=== PATIENT | male | born 1955 | race Hispanic/Latino ===

== ENCOUNTER 2018-09-05 05:35 | Day surgery (SDC) | payer MEDICARE ==
[~2018-09-05] VITALS: Ht 165.1 cm; Wt 85.2 kg
[~2018-09-05 05:35] MED LIST: SODIUM CHLORIDE 0.9% 1000ML 1,000 ML IV ONE
[2018-09-05 05:47] VITALS: BP 143/83
[2018-09-05 06:23] LABS: INR 1.43 (0.85-1.15); PROTHROMBIN TIME 14.9 SEC (9.6-11.6)
[2018-09-05] MEDS ORDERED: PROPOFOL 10 MG/ML 20ML VIAL IV ONE ×3 (06:36→06:58)
[2018-09-05] MEDS ORDERED: WARF2.5T85 PO ×2 (06:47)
[2018-09-05] MEDS ORDERED: CHLORPHENIRAMINE PO (06:47)
[2018-09-05] MEDS ORDERED: VITAMIN B12 PO (06:47)
[2018-09-05] MEDS ORDERED: MUCUS RELIEF PO (06:47)
[2018-09-05] MEDS ORDERED: VITAMIN D3 PO (06:47)
[2018-09-05] MEDS ORDERED: RAMI2.5C16 PO (06:47)
[2018-09-05] MEDS ORDERED: COQ10 PO (06:47)
[2018-09-05] MEDS ORDERED: ATOR20TA65 PO (06:47)
[2018-09-05] MEDS ORDERED: ASCO10007 PO (06:47)
[2018-09-05] MEDS ORDERED: CARV6.25 PO (06:47)
[2018-09-05] MEDS ORDERED: FISH OIL PO (06:47)
[2018-09-05] MEDS ORDERED: MULTIVITAMIN PO (06:47)
[2018-09-05 07:09] VITALS: BP 93/55
[2018-09-05 07:16] VITALS: BP 111/83
[2018-09-05 07:21] VITALS: BP 121/81
== END 2018-09-05 07:35 | disposition home or self-care (01) ==
LOC: DAH 05:35
PROVIDERS: ATTEND Internal Medicine
DX: D12.2 Benign neoplasm of ascending colon (principal); D12.0 Benign neoplasm of cecum; D12.3 Benign neoplasm of transverse colon; D12.4 Benign neoplasm of descending colon; D12.5 Benign neoplasm of sigmoid colon; K57.30 Diverticulosis of large intestine without perforation or abscess without bleeding; K64.8 Other hemorrhoids; Z79.899 Other long term (current) drug therapy; E78.00 Pure hypercholesterolemia, unspecified; Z86.73 Personal history of transient ischemic attack (TIA), and cerebral infarction without residual deficits; I10 Essential (primary) hypertension; I25.5 Ischemic cardiomyopathy; Z80.42 Family history of malignant neoplasm of prostate; Z80.8 Family history of malignant neoplasm of other organs or systems; Z82.49 Family history of ischemic heart disease and other diseases of the circulatory system; Z83.3 Family history of diabetes mellitus; Z82.3 Family history of stroke; Z72.89 Other problems related to lifestyle; Z87.891 Personal history of nicotine dependence; Z86.010 Personal history of colon polyps; H54.8 Legal blindness, as defined in USA; Z90.49 Acquired absence of other specified parts of digestive tract
CPT/HCPCS: 36415; 45385; 85610; 88305; 93005; A4606; A4649; J2704 ×3; J7030; 45380; 45382; 45384

== ENCOUNTER 2020-03-10 16:17 | Inpatient (IN) | payer OTHER, MEDICARE ==
[~2020-03-10] VITALS: Ht 162.6 cm; Wt 80.3 kg
[~2020-03-10 16:17] MED LIST changes: +ASCO100031 PO; +ATOR20TA65 PO; +CARV6.25 PO; +CHLORPHENIRAMINE PO; +COQ10 PO; +FISH OIL PO; +MUCUS RELIEF PO; +MULTIVITAMIN PO; +RAMI2.5C16 PO; -SODIUM CHLORIDE 0.9% 1000ML 1,000 ML IV ONE; +VITAMIN B12 PO; +VITAMIN D3 PO; +WARF2.5T85 PO
[2020-03-10 17:07] LABS: BASOPHILS % (AUTO) 1.3 % (0.0-5.0); EOSINOPHILS % (AUTO) 0.2 % (0.0-8.0); HEMATOCRIT 39.6 % (42-54); LYMPHOCYTES % (AUTO) 7.3 % (21.0-51.0); MEAN CORPUSCULAR HEMOGLOBIN 29.5 pg (27.0-33.0); MEAN CORPUSCULAR HGB CONC 35.9 g/dL (32.0-36.0); MEAN CORPUSCULAR VOLUME 82.2 fL (79-99); MONOCYTES % (AUTO) 5.1 % (3.0-13.0); NEUTROPHILS % (AUTO) 85.4 % (40.0-77.0); PLATELET COUNT (AUTO) 218 K/uL (130-400); RED BLOOD CELL COUNT(AUTO) 4.82 MIL/uL (4.50-6.20); WHITE BLOOD COUNT (AUTO) 10.9 K/uL (4.8-10.8)
[2020-03-10 17:17] LABS: INR 1.14 (0.85-1.15); PARTIAL THROMBOPLASTIN TIME 32.1 SEC (26.3-35.5); PROTHROMBIN TIME 12.2 SEC (9.6-11.6)
[2020-03-10 17:19] LABS: CARBON DIOXIDE 20 mmol/L (21-32); CHLORIDE 96 mmol/L (101-111); CREATININE 1.5 mg/dL (0.5-1.5); GLOMERULAR FILTR. RATE CALC 50 mL/min (>60); GLUCOSE,RANDOM 132 mg/dL (70-105); POTASSIUM 3.4 mmol/L (3.5-5.1); SODIUM SERUM 129 mmol/L (136-145); UREA NITROGEN, BLOOD 42 mg/dL (7-18)
[2020-03-10 17:41] LABS: ALANINE AMINOTRANSFERASE 43 U/L (12-78); ALBUMIN 3.1 g/dL (3.5-5.0); ASPARTATE AMINOTRANSFERASE 65 U/L (10-37); BILIRUBIN,TOTAL 1.3 mg/dL (0.2-1.0); MYOGLOBIN 836 ng/mL (10-92); TOTAL PROTEIN, SERUM 8.3 g/dL (6.0-8.3); TROPONIN I < 0.04 ng/mL (0.00-0.06)
[2020-03-10 17:44] LABS: CREATINE KINASE, TOTAL 603 U/L (21-232)
[2020-03-10] MEDS ORDERED: CEFTRIAXONE SODIUM 1 GM ONE (19:51)
[2020-03-10] MEDS ORDERED: AZITHROMYCIN 500MG+NS 250ML 250 ML IV ONE (19:51)
[2020-03-10] MEDS ORDERED: AZITHROMYCIN 250 MG TABLET PO ONE (19:55)
[2020-03-10] MEDS: CEFTRIAXONE SODIUM 1 GM IVP SCH (20:00)
[2020-03-10] MEDS ORDERED: AZITHROMYCIN 500MG+NS 250ML 250 ML IV SCH (20:00)
[2020-03-10] MEDS ORDERED: FAMOTIDINE 20MG TAB 20 MG TAB ONE (20:50)
[2020-03-10] MEDS: HYDROXYCHLOROQUINE SULFATE 200 MG TAB PO SCH (21:00)
[2020-03-10] MEDS: FAMOTIDINE 20MG TAB 20 MG TAB PO SCH (21:00)
[2020-03-10 23:02] VITALS: BP 118/77
[2020-03-10] MEDS ORDERED: POTASSIUM CHLORIDE 10% ELIXIR 20 MEQ/15 ML UDCUP PO SCH (23:45)
[2020-03-10] MEDS ORDERED: MONT10TA26 PO (23:51)
[2020-03-10] MEDS ORDERED: ATOR40TA71 PO (23:51)
[2020-03-10] MEDS ORDERED: LORA10TA7 PO (23:51)
[2020-03-10] MEDS ORDERED: RIVA20TA PO (23:51)
[2020-03-11 04:10] VITALS: BP 131/90
[2020-03-11 07:00] VITALS: BP 115/66
[2020-03-11] MEDS ORDERED: POTASSIUM CHLORIDE 20 MEQ ERTAB PO PRN (07:45)
[2020-03-11] MEDS ORDERED: POTASSIUM CHLORIDE 20MEQ/100ML 100 ML IV PRN (07:45)
[2020-03-11] MEDS ORDERED: LIDOCAINE HCL-MPF 1% 2ML VIAL IV PRN (07:45)
[2020-03-11] MEDS ORDERED: POTASSIUM CHLORIDE 10% ELIXIR 20 MEQ/15 ML UDCUP PO PRN (07:45)
--- NOTE | 2020-03-11 07:45 | NUR ---
AM ASSESSMENT PT LAYING IN BED, HOB ELEVATED 30 DEGREES, WATCHING TV. A/O X 3. SOB ON EXERTION. NO DISTRESS NOTED. O2 NC @ 2L. DENIES CHEST PAIN OR DISCOMFORT. DENIES PALPITATIONS. TELE: SR. DENIES N/V. (+) DIARRHEA. BEDSIDE COMMODE. PT INFORMED UA PENDING. UP W/ASSISTANCE. INSTRUCTED TO CALL FOR ASSISTANCE. CALL LJ W/IN REACH.
[2020-03-11] MEDS: HYDROXYCHLOROQUINE SULFATE 200 MG TAB PO SCH (07:54)
[2020-03-11] MEDS: FAMOTIDINE 20MG TAB 20 MG TAB PO SCH ×2 (07:54→20:03)
--- NOTE | 2020-03-11 11:08 | NUR ---
CHART REVIEWED, ACF UPLOADED
[2020-03-11 11:30] VITALS: BP 103/67
[2020-03-11 12:08] LABS: CREATININE 1.2 mg/dL (0.5-1.5); POTASSIUM 3.9 mmol/L (3.5-5.1)
[2020-03-11 12:16] LABS: APPEARANCE,URINE Clear (CLEAR); BILIRUBIN,URINE Negative (NEGATIVE); COLOR,URINE Dark Yellow (YELLOW); GLUCOSE, URINE (UA) Negative (NEGATIVE); KETONES,URINE Negative (NEGATIVE); LEUKOCYTE ESTERASE ,URINE Negative (NEGATIVE); NITRATE,URINE Negative (NEGATIVE); OCCULT BLOOD,URINE Trace (NEGATIVE); PH,URINE 5.5 (5.0-8.0); PROTEIN,URINE POS 2+ mg/dL (NEGATIVE)
[2020-03-11 12:32] LABS: BACTERIA,URINE Rare /HPF (None Seen); RBC,URINE 0-1 /HPF (0-1); SQUAMOUS EPITHELIAL CELL,UR Rare /HPF (0-2)
[2020-03-11 15:20] VITALS: BP 141/71
[2020-03-11] MEDS: SODIUM CHLORIDE 0.9% 1000ML 1,000 ML IV SCH (15:35)
--- NOTE | 2020-03-11 16:32 | NUR ---
INITIAL- SPOKE TO RADHA VINCENT VIA PHONE ONLY NUMBER ON FACE SHEET IS RADHA- STATES PATIENT LIVES ALONE, LEGALLY BLIND IN ONE [place], NO CAR, DOES NOT DRIVE, RADHA DOES ALL THE SHOPPING AND TRANSPORT- ONE OTHER SISTER IN THE AREA, WITH + NEICIE AND NEPHEWS, LOTS OF SUPPORT. NO PROVIDERS OR HOME HEALTH, MEALS ON WHEELS, PATIENT HAS NO HH, NO DME, HAS A HANDICAPPED RESTROOM. HOME SAFE AND ACCESSIBLE, DCP IS HOME . Addendum: 03/11/20 at 1634 by ROMI WELLS RN CM Amended: Links added.
[2020-03-11 17:00] LABS: LACTATE DEHYDROGENASE 312 U/L (81-234)
--- NOTE | 2020-03-11 17:55 | NUR ---
NOTIFICATION Hari LUZ NP NOTIFIED OF D-DIMAER, FERRITIN, & C REACT PROTEIN RESULTS. NO ORDERS RECEIVED @ THIS TIME.
[2020-03-11 19:23] VITALS: BP 120/66
[2020-03-11] MEDS: CEFTRIAXONE SODIUM 1 GM IVP SCH (20:02)
[2020-03-11] MEDS: ATORVASTATIN CALCIUM 40 MG TABLET PO SCH (20:02)
[2020-03-11] MEDS: AZITHROMYCIN 500MG+NS 250ML 250 ML IV SCH (20:02)
[2020-03-11] MEDS: CARVEDILOL 6.25 MG TABLET PO SCH (20:03)
[2020-03-11] MEDS: MONTELUKAST SODIUM 10 MG TAB PO SCH (20:03)
[2020-03-11] MEDS ORDERED: HYDROXYCHLOROQUINE SULFATE 200 MG TAB PO SCH (21:00)
[2020-03-11 23:09] VITALS: BP 102/63
[2020-03-11] MEDS: ACETAMINOPHEN 325 MG TAB PO PRN (23:22)
[2020-03-12 03:34] VITALS: BP 84/61
[2020-03-12] MEDS: SODIUM CHLORIDE 0.9% 1000ML 1,000 ML IV SCH ×2 (04:20→16:54)
[2020-03-12 05:52] LABS: BASOPHILS % (AUTO) 0.2 % (0.0-5.0); EOSINOPHILS % (AUTO) 0.1 % (0.0-8.0); HEMATOCRIT 34.4 % (42-54); LYMPHOCYTES % (AUTO) 10.8 % (21.0-51.0); MEAN CORPUSCULAR HEMOGLOBIN 28.7 pg (27.0-33.0); MEAN CORPUSCULAR HGB CONC 34.3 g/dL (32.0-36.0); MEAN CORPUSCULAR VOLUME 83.7 fL (79-99); MONOCYTES % (AUTO) 4.1 % (3.0-13.0); PLATELET COUNT (AUTO) 232 K/uL (130-400); RED BLOOD CELL COUNT(AUTO) 4.11 MIL/uL (4.50-6.20); RED CELL DISTRIBUTION WIDTH 13.3 % (11.0-15.5); WHITE BLOOD COUNT (AUTO) 10.8 K/uL (4.8-10.8)
[2020-03-12 06:27] LABS: CREATININE 1.1 mg/dL (0.5-1.5); MAGNESIUM 2.7 mg/dL (1.80-2.40); PHOSPHORUS 3.4 mg/dL (2.5-4.9); POTASSIUM 3.5 mmol/L (3.5-5.1)
--- NOTE | 2020-03-12 07:10 | NUR ---
ASSESSMENT PT AAOX3 DENIES CP DENIES SOB DENIES NV WHILE AT REST. NO COMPLAINTS AT THIS TIME. CALL LIGHT WITHIN REACH. AM XRAY TAKEN AT BEDSIDE.
[2020-03-12] MEDS: RIVAROXABAN 20 MG TABLET PO SCH (07:37)
[2020-03-12] MEDS: FAMOTIDINE 20MG TAB 20 MG TAB PO SCH ×2 (07:37→20:22)
[2020-03-12] MEDS: CARVEDILOL 6.25 MG TABLET PO SCH ×2 (07:38→20:24)
[2020-03-12] MEDS: LISINOPRIL 10 MG TABLET PO SCH (07:38)
[2020-03-12] MEDS: LORATADINE 10 MG TABLET PO SCH (07:39)
[2020-03-12 07:48] LABS: MYOGLOBIN 209 ng/mL (10-92)
[2020-03-12 07:55] LABS: CREATINE KINASE, TOTAL 464 U/L (21-232)
[2020-03-12 09:04] VITALS: BP 94/58
[2020-03-12 12:16] VITALS: BP 102/67
[2020-03-12 16:19] VITALS: BP 102/65
--- NOTE | 2020-03-12 18:00 | NUR ---
STATUS NO COMPLAINTS AT THE MOMENT. RESTING IN BED.
[2020-03-12 20:02] VITALS: BP 101/72
[2020-03-12] MEDS: AZITHROMYCIN 500MG+NS 250ML 250 ML IV SCH (20:23)
[2020-03-12] MEDS: MONTELUKAST SODIUM 10 MG TAB PO SCH (20:23)
[2020-03-12] MEDS: CEFTRIAXONE SODIUM 1 GM IVP SCH (20:23)
[2020-03-12] MEDS: ATORVASTATIN CALCIUM 40 MG TABLET PO SCH (20:23)
[2020-03-13] VITALS (7 sets, daily range): BP systolic 106–123; BP diastolic 66–82
[2020-03-13 05:10] LABS: BASOPHILS % (AUTO) 0.1 % (0.0-5.0); EOSINOPHILS % (AUTO) 0.3 % (0.0-8.0); HEMATOCRIT 32.3 % (42-54); LYMPHOCYTES % (AUTO) 15.8 % (21.0-51.0); MEAN CORPUSCULAR HEMOGLOBIN 29.3 pg (27.0-33.0); MEAN CORPUSCULAR HGB CONC 34.7 g/dL (32.0-36.0); MEAN CORPUSCULAR VOLUME 84.6 fL (79-99); MONOCYTES % (AUTO) 6.4 % (3.0-13.0); NEUTROPHILS % (AUTO) 76.1 % (40.0-77.0); PLATELET COUNT (AUTO) 261 K/uL (130-400); RED BLOOD CELL COUNT(AUTO) 3.82 MIL/uL (4.50-6.20); RED CELL DISTRIBUTION WIDTH 13.5 % (11.0-15.5)
[2020-03-13 05:26] LABS: CREATININE 0.9 mg/dL (0.5-1.5); POTASSIUM 3.6 mmol/L (3.5-5.1)
[2020-03-13] MEDS: RIVAROXABAN 20 MG TABLET PO SCH (07:18)
[2020-03-13] MEDS: SODIUM CHLORIDE 0.9% 1000ML 1,000 ML IV SCH ×2 (07:19→21:03)
[2020-03-13] MEDS: CARVEDILOL 6.25 MG TABLET PO SCH ×2 (07:19→22:33)
[2020-03-13] MEDS: FAMOTIDINE 20MG TAB 20 MG TAB PO SCH ×2 (07:19→20:50)
[2020-03-13] MEDS: LORATADINE 10 MG TABLET PO SCH (07:19)
[2020-03-13] MEDS: LISINOPRIL 10 MG TABLET PO SCH (07:20)
--- NOTE | 2020-03-13 08:00 | NUR ---
ASSESSMENT PT AAOX3 DENIES CP DENIES SOB DENIES NV WHILE AT REST. NO COMPLAINTS AT THIS TIME. CALL LIGHT WITHIN REACH.
[2020-03-13] MEDS: AZITHROMYCIN 500MG+NS 250ML 250 ML IV SCH (20:50)
[2020-03-13] MEDS: CEFTRIAXONE SODIUM 1 GM IVP SCH (20:50)
[2020-03-13] MEDS: ATORVASTATIN CALCIUM 40 MG TABLET PO SCH (20:51)
[2020-03-13] MEDS: MONTELUKAST SODIUM 10 MG TAB PO SCH (20:51)
[2020-03-14 06:00] VITALS: BP 118/83
[2020-03-14] MEDS: RIVAROXABAN 20 MG TABLET PO SCH (08:05)
[2020-03-14] MEDS: LORATADINE 10 MG TABLET PO SCH (08:05)
[2020-03-14] MEDS: FAMOTIDINE 20MG TAB 20 MG TAB PO SCH ×2 (08:05→20:32)
[2020-03-14] MEDS: LISINOPRIL 10 MG TABLET PO SCH (08:05)
[2020-03-14] MEDS: CARVEDILOL 6.25 MG TABLET PO SCH ×2 (08:06→20:32)
[2020-03-14 08:58] VITALS: BP 138/91
[2020-03-14 12:02] VITALS: BP 124/75
--- NOTE | 2020-03-14 14:29 | NUR ---
CALL TO SISTER X 2 THIS MORNING REC'D CALL FROM THAT SISTER RADHA HAD LEFT MESSAGE . CALL X 2 TO RADHA, MESSAGE LEFT, NO ANSWER YET. PRIMARY RN STATES SISTER CALLED EARLIER TODAY WAS CONCERNED RE THE SANITARY CONDITION OF PTS HOME. WILL ATTEMPT TO FOLLOW UP. Addendum: 03/14/20 at 1432 by ROMI WELLS RN CM Amended: Links added.
--- NOTE | 2020-03-14 15:49 | NUR ---
SISTER INPUT RE OXYGEN ORDER RECD FOR HOME O2- SPOKE TO [employer] DC TOMORROW, GET EVAL AND QUALIFICATIONS TODAY. SPOKE TO RT. PT WILL QUALIFY, DE-SATS SITTING ON ROOM AIR. CALL FROM RADHA SISTER- CAREGIVER- STATES IMPAIRED VISION, FORGETFUL, NOON COMPLIANT W MEDS, UNSTADY ON FEET POOR EXCERSIZE TOLERANCE- WORRIED PATIENT WILLNOT SAFELY ADMIN OXYGEN- WILL FORGET TO WEAR IT OR WILL TRIP ON TUBING. ASKING RE PLACMENT- ADVISED HER IF PATIENT AGREES, CAN MEET CRITERIA FOR COVID AFTERCARE. TEXT TO BALJIT [facility] DC TUESDAY TO HOME IF DOES NOT NEED O2 VS TO SNF IF DOES NEED O2. Addendum: 03/14/20 at 1554 by ROMI WELLS RN Amended: Links added.
[2020-03-14 16:31] VITALS: BP 135/75
[2020-03-14 19:00] VITALS: BP 119/78
[2020-03-14] MEDS: AZITHROMYCIN 250 MG TABLET PO SCH (20:32)
[2020-03-14] MEDS: MONTELUKAST SODIUM 10 MG TAB PO SCH (20:32)
[2020-03-14] MEDS: CEFTRIAXONE SODIUM 1 GM IVP SCH (20:32)
[2020-03-14] MEDS: ATORVASTATIN CALCIUM 40 MG TABLET PO SCH (20:32)
[2020-03-14 23:00] VITALS: BP 126/83
[2020-03-15] VITALS (15 sets, daily range): BP systolic 103–127; BP diastolic 68–85
[2020-03-15] MEDS: LORATADINE 10 MG TABLET PO SCH (08:00)
[2020-03-15] MEDS: RIVAROXABAN 20 MG TABLET PO SCH (08:00)
[2020-03-15] MEDS: FAMOTIDINE 20MG TAB 20 MG TAB PO SCH ×2 (08:00→19:42)
[2020-03-15] MEDS: LISINOPRIL 10 MG TABLET PO SCH (08:01)
[2020-03-15] MEDS: CARVEDILOL 6.25 MG TABLET PO SCH ×2 (08:02→19:43)
[2020-03-15] MEDS ORDERED: METHYLPREDNISOLONE SOD SUCC 40MG/ML 1ML IVP SCH (13:30)
[2020-03-15 13:44] LABS: ABG BASE EXCESS -0.9 mmol/L (-2.0-3.0); ABG HCO3 21.6 mmol/L (21.0-28.0); ABG OXYGEN SATURATION 96.1 % (95.0-99.0); ABG PCO2 30 mmHg (35-48)
--- NOTE | 2020-03-15 13:50 | NUR ---
ABG ABG RESULTS GIVEN TO DR VIDES; NO ORDERS AT THIS TIME
[2020-03-15 14:10] LABS: BASOPHILS % (AUTO) 0.7 % (0.0-5.0); EOSINOPHILS % (AUTO) 1.9 % (0.0-8.0); HEMATOCRIT 33.1 % (42-54); LYMPHOCYTES % (AUTO) 12.1 % (21.0-51.0); MEAN CORPUSCULAR HEMOGLOBIN 29.4 pg (27.0-33.0); MONOCYTES % (AUTO) 8.7 % (3.0-13.0); NEUTROPHILS % (AUTO) 74.3 % (40.0-77.0); NUCLEATED RED BLOOD CELLS 0.3 % (0.0-0.19); PLATELET COUNT (AUTO) 336 K/uL (130-400); RED BLOOD CELL COUNT(AUTO) 3.94 MIL/uL (4.50-6.20); RED CELL DISTRIBUTION WIDTH 13.3 % (11.0-15.5); WHITE BLOOD COUNT (AUTO) 7.3 K/uL (4.8-10.8)
[2020-03-15 14:20] LABS: CREATININE 0.8 mg/dL (0.5-1.5); POTASSIUM 3.6 mmol/L (3.5-5.1)
[2020-03-15 14:25] LABS: ALBUMIN 2.1 g/dL (3.5-5.0); BILIRUBIN,TOTAL 0.6 mg/dL (0.2-1.0); CRP QUANTITATIVE 150.9 mg/L (0.00-9.0)
--- NOTE | 2020-03-15 19:30 | NUR ---
ASSESSMENT PT AAOX4, PLEASANT, COOPERATIVE, RESTING QUIETLY AND COMFORTABLY IN BED. CALLBELL REVIEWED AND WITHIN REACH. BEDSIDE MONITOR PARAMETERS REVIEWED AND ADJUSTED. PT CURRENT DENIES ANY CHEST PAIN, GENERALIZED PAIN OR DISCOMFORT, RESTLESSNESS. S.O.B. WITH EXERTION NOTED. ASSESSMENT COMPLETED, SEE FLOW SHEET.
[2020-03-15] MEDS: CEFTRIAXONE SODIUM 1 GM IVP SCH (19:41)
[2020-03-15] MEDS: ATORVASTATIN CALCIUM 40 MG TABLET PO SCH (19:42)
[2020-03-15] MEDS: AZITHROMYCIN 250 MG TABLET PO SCH (19:42)
[2020-03-15] MEDS: MONTELUKAST SODIUM 10 MG TAB PO SCH (19:42)
[2020-03-16] VITALS (28 sets, daily range): BP systolic 92–127; BP diastolic 59–90
[2020-03-16] MEDS: RIVAROXABAN 20 MG TABLET PO SCH (07:58)
[2020-03-16] MEDS: LORATADINE 10 MG TABLET PO SCH (07:58)
[2020-03-16] MEDS: FAMOTIDINE 20MG TAB 20 MG TAB PO SCH ×2 (07:59→20:06)
[2020-03-16] MEDS: METHYLPREDNISOLONE SOD SUCC 40MG/ML 1ML IVP SCH (07:59)
[2020-03-16] MEDS: CARVEDILOL 6.25 MG TABLET PO SCH ×2 (07:59→20:08)
[2020-03-16] MEDS: LISINOPRIL 10 MG TABLET PO SCH (07:59)
[2020-03-16] MEDS: MONTELUKAST SODIUM 10 MG TAB PO SCH (20:06)
[2020-03-16] MEDS: ATORVASTATIN CALCIUM 40 MG TABLET PO SCH (20:06)
[2020-03-16] MEDS: CEFTRIAXONE SODIUM 1 GM IVP SCH (20:06)
[2020-03-16] MEDS: AZITHROMYCIN 250 MG TABLET PO SCH (20:06)
[2020-03-17] VITALS (16 sets, daily range): BP systolic 103–135; BP diastolic 55–93
[2020-03-17] MEDS: CARVEDILOL 6.25 MG TABLET PO SCH ×2 (07:52→20:11)
[2020-03-17] MEDS: RIVAROXABAN 20 MG TABLET PO SCH (07:52)
[2020-03-17] MEDS: FAMOTIDINE 20MG TAB 20 MG TAB PO SCH ×2 (07:52→20:12)
[2020-03-17] MEDS: LORATADINE 10 MG TABLET PO SCH (07:53)
[2020-03-17] MEDS: BENZOCAINE/MENTH/CETYLPYRD CL 1 EACH LOZENGE MM PRN ×4 (07:53→23:15)
[2020-03-17] MEDS: METHYLPREDNISOLONE SOD SUCC 40MG/ML 1ML IVP SCH (07:53)
[2020-03-17] MEDS: LISINOPRIL 10 MG TABLET PO SCH (07:53)
[2020-03-17 11:26] LABS: BASOPHILS % (AUTO) 0.2 % (0.0-5.0); HEMATOCRIT 33.4 % (42-54); LYMPHOCYTES % (AUTO) 6.1 % (21.0-51.0); MEAN CORPUSCULAR HEMOGLOBIN 29.1 pg (27.0-33.0); MEAN CORPUSCULAR HGB CONC 34.1 g/dL (32.0-36.0); MEAN CORPUSCULAR VOLUME 85.2 fL (79-99); MONOCYTES % (AUTO) 3.4 % (3.0-13.0); NEUTROPHILS % (AUTO) 88.7 % (40.0-77.0); PLATELET COUNT (AUTO) 435 K/uL (130-400); RED BLOOD CELL COUNT(AUTO) 3.92 MIL/uL (4.50-6.20); RED CELL DISTRIBUTION WIDTH 13.7 % (11.0-15.5); WHITE BLOOD COUNT (AUTO) 12.2 K/uL (4.8-10.8)
[2020-03-17 11:30] LABS: MAGNESIUM 2.1 mg/dL (1.80-2.40); POTASSIUM 3.6 mmol/L (3.5-5.1)
--- NOTE | 2020-03-17 16:44 | NUR ---
Nutrition Intervention: Nutrition screen based on LOS x 7 days. Pt. on Heart Healthy diet with 0-50% p.o. intake as noted in EMR. Labs reviewed(Alb 2.1, Ferritin 839, AST/ALT 103/109). [id number]. LBM: 03/17/2020. BMI: 29.9, overweight. Recommendations: 1) Rec. Ensure BID with B'fast and dinner meals. 2) Continue to monitor pt's nutritional status. 3) Consult RD as nutrition concerns arise. Addendum: 03/17/20 at [address] Amended: Links added.
--- NOTE | 2020-03-17 20:00 | NUR ---
ASSESSMENT PT RESTING IN BED. PT AAOX4, PLEASANT AND COOPERATIVE, AND FOLLOWING COMMANDS. PT COVID-19 POSITIVE, ISOLATION INTACT. ASSESSMENT COMPLETE, SEE FLOW SHEET. CALLBELL WITHIN REACH.
[2020-03-17] MEDS: ATORVASTATIN CALCIUM 40 MG TABLET PO SCH (20:09)
[2020-03-17] MEDS: AZITHROMYCIN 250 MG TABLET PO SCH (20:09)
[2020-03-17] MEDS: MONTELUKAST SODIUM 10 MG TAB PO SCH (20:10)
[2020-03-17] MEDS: CEFTRIAXONE SODIUM 1 GM IVP SCH (20:11)
[2020-03-18 00:16] VITALS: BP 128/86
[2020-03-18 04:34] VITALS: BP 123/84
[2020-03-18 07:00] VITALS: BP 121/76
[2020-03-18] MEDS: METHYLPREDNISOLONE SOD SUCC 40MG/ML 1ML IVP SCH (07:43)
[2020-03-18] MEDS: LISINOPRIL 10 MG TABLET PO SCH (07:44)
[2020-03-18] MEDS: CARVEDILOL 6.25 MG TABLET PO SCH ×2 (07:44→21:01)
[2020-03-18] MEDS: FAMOTIDINE 20MG TAB 20 MG TAB PO SCH ×2 (07:44→21:00)
[2020-03-18] MEDS: RIVAROXABAN 20 MG TABLET PO SCH (07:44)
[2020-03-18] MEDS: LORATADINE 10 MG TABLET PO SCH (07:44)
--- NOTE | 2020-03-18 08:00 | NUR ---
ASSESSMENT PT RESTING IN BED. AAOX3 DENIES CP DENIES SOB DENIES NV NO COMPLAINTS. O2 VIA NC 2LPM. CALL LIGHT WITHIN REACH. HR VIA TELE 67 SR.
[2020-03-18 11:00] VITALS: BP 104/67
--- NOTE | 2020-03-18 13:40 | NUR ---
SpO2 on 5L NC O2 w/Exercise 93% Addendum: 03/18/20 at 1610 by BRIDGETT LOMELI RT Amended: Links added.
[2020-03-18 16:00] VITALS: BP 128/73
--- NOTE | 2020-03-18 18:15 | NUR ---
DC PLAN PATIENT QUALIFIED FOR HOME 02. PATIENT NEEDS 5L WHILE AMBULATING. SPOKE TO HOME CARE DIMENSIONS REGARDING HIGH 02 AMOUNT. SAID THAT CONCENTRATOR CAN GO TO 10L. THE PORTABLE WILL ONLY BE ABLE TO LAST MAYBE 15 MIN. CALLED PATIENT ROOM NO ANSWER. CALLED SISTER TO SEE IF SHE WILL BE ABLE TO HELP PATIENT AT HOME. SPENT 45 MIN ANSWERING QUESTIONS AND REASSURING SISTER. SAID WILL BE ABLE TO OPEN BROTHER HOUSE FOR DELIVERY OF CONCENTRATOR. GAVE HOME CARE DIMENSIONS HER NUMBER FOR DELIVERY. THE SISTER IS CURRENTLY WAITING ON COVID RESULTS FOR SELF. GAVE HER OPTIONS FOR FAMILY TO DELIVER GROCERIES TO DOOR STEP OF BROTHER SINCE HE WILL BE QUARANTINED IN HOUSE FOR THE REMAINDER 14 DAYS. SAID THEY WILL THINK OF DIFFERENT WAYS TO HELP BROTHER. INFO SENT TO HOME CARE DIMENSIONS. Addendum: 03/18/20 at 1825 by CATE MILLARD RN CM Amended: Links added.
[2020-03-18 20:43] VITALS: BP 113/80
[2020-03-18] MEDS: MONTELUKAST SODIUM 10 MG TAB PO SCH (21:00)
[2020-03-18] MEDS: ATORVASTATIN CALCIUM 40 MG TABLET PO SCH (21:00)
[2020-03-18] MEDS: AZITHROMYCIN 250 MG TABLET PO SCH (21:00)
[2020-03-18] MEDS: BENZOCAINE/MENTH/CETYLPYRD CL 1 EACH LOZENGE MM PRN (21:00)
[2020-03-18] MEDS: CEFTRIAXONE SODIUM 1 GM IVP SCH (21:01)
[2020-03-19 00:02] VITALS: BP 129/77
[2020-03-19 04:11] VITALS: BP 109/71
[2020-03-19] MEDS: LISINOPRIL 10 MG TABLET PO SCH (08:35)
[2020-03-19] MEDS: LORATADINE 10 MG TABLET PO SCH (08:35)
[2020-03-19] MEDS: FAMOTIDINE 20MG TAB 20 MG TAB PO SCH ×2 (08:36→20:11)
[2020-03-19] MEDS: PREDNISONE 10 MG TABLET PO SCH (08:36)
[2020-03-19] MEDS: RIVAROXABAN 20 MG TABLET PO SCH (08:36)
[2020-03-19 08:40] VITALS: BP 131/87
[2020-03-19] MEDS: CARVEDILOL 6.25 MG TABLET PO SCH ×2 (08:48→20:12)
--- NOTE | 2020-03-19 12:31 | NUR ---
REFERRAL SENT TO [facility] FAX LINE X3- STATES RECD, CALL TO [facility] STATES [place] REC, FAXED AGAIN. NOTED TO BE ON 5 L RESTING PER RN THIS MORNING, RELAYED TO [facility]; CALL FROM SISTER RADHA, UPDATED ON PLAN OF CARE, STATES SHE IS WORRIED ABOUT HIM AT HOME ON ON2, ARE THERE OTHER OPTIONS Addendum: 03/19/20 at 1234 by ROMI WELLS RN CM Amended: Links added.
[2020-03-19 12:38] VITALS: BP 123/77
[2020-03-19 15:30] VITALS: BP 120/78
[2020-03-19] MEDS ORDERED: BENZONATATE 100 MG CAPSULE PO PRN (16:45)
[2020-03-19 20:08] VITALS: BP 107/70
[2020-03-19] MEDS: ATORVASTATIN CALCIUM 40 MG TABLET PO SCH (20:11)
[2020-03-19] MEDS: MONTELUKAST SODIUM 10 MG TAB PO SCH (20:12)
[2020-03-19] MEDS: CEFTRIAXONE SODIUM 1 GM IVP SCH (20:12)
[2020-03-19] MEDS: AZITHROMYCIN 250 MG TABLET PO SCH (20:12)
[2020-03-20] VITALS (8 sets, daily range): BP systolic 102–122; BP diastolic 68–77
[2020-03-20] MEDS: BENZOCAINE/MENTH/CETYLPYRD CL 1 EACH LOZENGE MM PRN ×2 (05:18→09:29)
[2020-03-20 05:29] LABS: BASOPHILS % (AUTO) 0.6 % (0.0-5.0); EOSINOPHILS % (AUTO) 0.2 % (0.0-8.0); HEMATOCRIT 34.8 % (42-54); LYMPHOCYTES % (AUTO) 17.3 % (21.0-51.0); MEAN CORPUSCULAR HEMOGLOBIN 28.8 pg (27.0-33.0); MEAN CORPUSCULAR HGB CONC 33.9 g/dL (32.0-36.0); MEAN CORPUSCULAR VOLUME 84.9 fL (79-99); MONOCYTES % (AUTO) 6.7 % (3.0-13.0); NEUTROPHILS % (AUTO) 68.7 % (40.0-77.0); NUCLEATED RED BLOOD CELLS 0.2 % (0.0-0.19); PLATELET COUNT (AUTO) 416 K/uL (130-400); RED CELL DISTRIBUTION WIDTH 13.4 % (11.0-15.5); WHITE BLOOD COUNT (AUTO) 12.5 K/uL (4.8-10.8)
[2020-03-20 05:55] LABS: ALBUMIN 2.3 g/dL (3.5-5.0); BILIRUBIN,TOTAL 0.2 mg/dL (0.2-1.0); MAGNESIUM 1.9 mg/dL (1.80-2.40); PHOSPHORUS 3.7 mg/dL (2.5-4.9); TOTAL PROTEIN, SERUM 6.7 g/dL (6.0-8.3)
[2020-03-20] MEDS: LISINOPRIL 10 MG TABLET PO SCH (09:13)
[2020-03-20] MEDS: FAMOTIDINE 20MG TAB 20 MG TAB PO SCH ×2 (09:13→19:25)
[2020-03-20] MEDS: LORATADINE 10 MG TABLET PO SCH (09:13)
[2020-03-20] MEDS: PREDNISONE 10 MG TABLET PO SCH (09:13)
[2020-03-20] MEDS: CARVEDILOL 6.25 MG TABLET PO SCH ×2 (09:13→19:47)
[2020-03-20] MEDS: RIVAROXABAN 20 MG TABLET PO SCH (09:13)
--- NOTE | 2020-03-20 12:47 | NUR ---
DR. LATHAM IN ROOM SPEAKING WITH PT. RE:PLAN OF CARE. QUESTIONS ANSWERED BY DR. LATHAM; PT. VERBALIZED UNDERSTANDING.
[2020-03-20] MEDS: CEFTRIAXONE SODIUM 1 GM IVP SCH (19:20)
[2020-03-20] MEDS: AZITHROMYCIN 250 MG TABLET PO SCH (19:20)
[2020-03-20] MEDS: ATORVASTATIN CALCIUM 40 MG TABLET PO SCH (19:25)
[2020-03-20] MEDS: MONTELUKAST SODIUM 10 MG TAB PO SCH (19:26)
--- NOTE | 2020-03-20 23:55 | NUR ---
status up date television maintenance worker reported 20 beat wide qrs, reverted to sr. , pt states trying to get to to commode , states ok ,nothing unusual felt, will monitor closely Addendum: 03/21/20 at 0000 by DIVINA GARCIA RN RN Amended: Links added.
[2020-03-21 03:25] VITALS: BP 108/68
[2020-03-21 04:40] LABS: BASOPHILS % (AUTO) 0.6 % (0.0-5.0); EOSINOPHILS % (AUTO) 0.1 % (0.0-8.0); LYMPHOCYTES % (AUTO) 10.5 % (21.0-51.0); MEAN CORPUSCULAR HGB CONC 33.5 g/dL (32.0-36.0); MEAN CORPUSCULAR VOLUME 86.7 fL (79-99); MONOCYTES % (AUTO) 4.5 % (3.0-13.0); NEUTROPHILS % (AUTO) 79.1 % (40.0-77.0); PLATELET COUNT (AUTO) 433 K/uL (130-400); RED BLOOD CELL COUNT(AUTO) 4.27 MIL/uL (4.50-6.20); RED CELL DISTRIBUTION WIDTH 13.6 % (11.0-15.5); WHITE BLOOD COUNT (AUTO) 14.9 K/uL (4.8-10.8)
[2020-03-21 05:05] LABS: ALBUMIN 2.5 g/dL (3.5-5.0); BILIRUBIN,TOTAL 0.3 mg/dL (0.2-1.0); CREATININE 0.9 mg/dL (0.5-1.5); MAGNESIUM 2.1 mg/dL (1.80-2.40); POTASSIUM 4.8 mmol/L (3.5-5.1); TOTAL PROTEIN, SERUM 6.9 g/dL (6.0-8.3)
[2020-03-21] MEDS: CARVEDILOL 6.25 MG TABLET PO SCH ×2 (08:19→20:40)
[2020-03-21] MEDS: PREDNISONE 10 MG TABLET PO SCH (08:19)
[2020-03-21] MEDS: LISINOPRIL 10 MG TABLET PO SCH (08:20)
[2020-03-21] MEDS: FAMOTIDINE 20MG TAB 20 MG TAB PO SCH ×2 (08:20→20:39)
[2020-03-21] MEDS: LORATADINE 10 MG TABLET PO SCH (08:20)
[2020-03-21] MEDS: RIVAROXABAN 20 MG TABLET PO SCH (08:21)
[2020-03-21 08:35] VITALS: BP 106/72
[2020-03-21 08:54] LABS: ABG BASE EXCESS 1.6 mmol/L (-2.0-3.0); ABG HCO3 24.6 mmol/L (21.0-28.0); ABG OXYGEN SATURATION 90.3 % (95.0-99.0); ABG PCO2 34 mmHg (35-48)
--- NOTE | 2020-03-21 11:04 | NUR ---
HOME O2 RE EVAL NEEDED TESTING EXPIRES, ABG NON QUALIFYING, ORDER FOR REPAT PLACED AND PRIMARY RN UPDATED ALSO REC'D CALL FROM PMD RE PATIENT /SISTER UNWILLING TO TAKE RESPONSIBLITY FOR PATIENT ON DISCHARGE- EXPLAINED UNABLE TO PLACE PATIENT IF COVID +, PATIENT AMBULATORY NO NEED FOR PT OR IV ABX Addendum: 03/21/20 at 1106 by ROMI WELLS RN CM Amended: Links added.
[2020-03-21 12:09] VITALS: BP 104/64
--- NOTE | 2020-03-21 14:38 | NUR ---
RD FOLLOW UP Pt continues on Heart Healthy Diet order, Ensure BID in place. Pt with no report of Gi distress, PO intake at 100%. LBM 03/20/20. Recommend continue current diet order. RD to continue to monitor. Please notify as nutrition concerns arise. Thank you. Addendum: 03/21/20 at [address] Amended: Links added.
--- NOTE | 2020-03-21 16:25 | NUR ---
SPOKE WITH SISTER AT LENGTH- READY FOR PATIENT TO GO HOME. ALSO COVID POSITIVE, QUARANTINED, STILL W FEVER, UNABLE TO BE AT HOME TO HELP HIM, REQUESTING AMBULANCE HOME - NO FAMILY TO PICK HIM UP CALL TO [facility] TO CHECK ON [place]. WILL FOLLOW Addendum: 03/21/20 at 1636 by ROMI WELLS RN CM Amended: Links added.
[2020-03-21 16:35] VITALS: BP 110/69
[2020-03-21 20:23] VITALS: BP 107/70
[2020-03-21] MEDS: AZITHROMYCIN 250 MG TABLET PO SCH (20:39)
[2020-03-21] MEDS: ATORVASTATIN CALCIUM 40 MG TABLET PO SCH (20:39)
[2020-03-21] MEDS: MONTELUKAST SODIUM 10 MG TAB PO SCH (20:39)
[2020-03-21] MEDS: CEFTRIAXONE SODIUM 1 GM IVP SCH (20:40)
[2020-03-21 23:54] VITALS: BP 104/65
[2020-03-22 04:11] VITALS: BP 117/57
[2020-03-22 05:56] LABS: BASOPHILS % (AUTO) 0.3 % (0.0-5.0); EOSINOPHILS % (AUTO) 0.2 % (0.0-8.0); HEMATOCRIT 35.4 % (42-54); LYMPHOCYTES % (AUTO) 15.1 % (21.0-51.0); MEAN CORPUSCULAR HGB CONC 33.6 g/dL (32.0-36.0); MEAN CORPUSCULAR VOLUME 86.3 fL (79-99); MONOCYTES % (AUTO) 5.1 % (3.0-13.0); NEUTROPHILS % (AUTO) 75.3 % (40.0-77.0); PLATELET COUNT (AUTO) 391 K/uL (130-400); RED CELL DISTRIBUTION WIDTH 13.9 % (11.0-15.5); WHITE BLOOD COUNT (AUTO) 13.9 K/uL (4.8-10.8)
[2020-03-22 06:08] LABS: POTASSIUM 4.2 mmol/L (3.5-5.1)
[2020-03-22 07:53] VITALS: BP 114/79
--- NOTE | 2020-03-22 08:00 | NUR ---
AM ASSESSMENT PT AWAKE AND ALERT, DENIES CHEST PAIN, NO LABORED RESPIRATIONS, O2 PER NC. BREAKFAST SET UP, CALL LIGHT WITHIN REACH.
[2020-03-22] MEDS: LISINOPRIL 10 MG TABLET PO SCH (08:31)
[2020-03-22] MEDS: PREDNISONE 10 MG TABLET PO SCH (08:31)
[2020-03-22] MEDS: FAMOTIDINE 20MG TAB 20 MG TAB PO SCH ×2 (08:32→20:08)
[2020-03-22] MEDS: LORATADINE 10 MG TABLET PO SCH (08:32)
[2020-03-22] MEDS: CARVEDILOL 6.25 MG TABLET PO SCH ×2 (08:32→20:09)
[2020-03-22] MEDS: RIVAROXABAN 20 MG TABLET PO SCH (08:32)
[2020-03-22 12:19] VITALS: BP 93/58
--- NOTE | 2020-03-22 16:00 | NUR ---
PM ASSESSMENT PT AWAKE AND ALERT, DENIES SOB OR LABORED RESPIRATIONS, O2 PER NC. CALL LIGHT WITHIN REACH
[2020-03-22 16:23] VITALS: BP 107/70
[2020-03-22] MEDS: AZITHROMYCIN 250 MG TABLET PO SCH (20:08)
[2020-03-22] MEDS: CEFTRIAXONE SODIUM 1 GM IVP SCH (20:08)
[2020-03-22] MEDS: MONTELUKAST SODIUM 10 MG TAB PO SCH (20:08)
[2020-03-22] MEDS: ATORVASTATIN CALCIUM 40 MG TABLET PO SCH (20:09)
[2020-03-22 20:10] VITALS: BP 102/69
[2020-03-22 23:56] VITALS: BP 103/68
[2020-03-23] VITALS (7 sets, daily range): BP systolic 91–112; BP diastolic 51–69
--- NOTE | 2020-03-23 08:00 | NUR ---
AM ASSESSMENT PT AWAKE AND ALERT, DENIES CHEST PAIN, NO SOB OR LABORED RESPIRATIONS AT THIS TIME, THOUGH PATIENT STATES HAVING INTERMITTENT EPISODES OF MILD SOB WITH EXERTION. O2 PER NC, O2 SAT 91-92% ON 2L. CALL LIGHT WITHIN REACH.
[2020-03-23] MEDS: CARVEDILOL 6.25 MG TABLET PO SCH ×2 (08:22→19:55)
[2020-03-23] MEDS: LISINOPRIL 10 MG TABLET PO SCH (08:23)
[2020-03-23] MEDS: RIVAROXABAN 20 MG TABLET PO SCH (08:23)
[2020-03-23] MEDS: FAMOTIDINE 20MG TAB 20 MG TAB PO SCH ×2 (08:23→19:54)
[2020-03-23] MEDS: LORATADINE 10 MG TABLET PO SCH (08:23)
--- NOTE | 2020-03-23 11:22 | NUR ---
HOME HEALTH TO BE SET UP TUESDAY BY PRIMARY MD DR. FRIED SPOKE TO OFFICE ON TUESDAY AND TUESDAY - PACKET READY TO SEND TO PRIMARY MD TO SET UP HOME HEALTH -- WHEN DISCHARGE SUMMARY AVAILABLE. 'S OFFICE STATES THAT NO TELEHEALTH FOR THIS PATIENT BECAUSE HE DECLINED TO SIGN THE CONSENT FORM FOR TELEHEALTH ON HIS LAST OFFICE VISIT. HOWEVER THEY ARE WILLING TO SET UP HOME HEALTH FOR HIM FOR [facility], TO CHECK SATS, ETC. THIS CM HAS ALL INFO READY TO FAX TO [phone] WHEN DISCHARGE ORDERS ARE PLACED, CM UNABLE TO SET UP HOME HEALTH HERE. NEEDS PRIMARY MD ORDER Addendum: 03/23/20 at 1126 by ROMI WELLS RN Amended: Links added.
[2020-03-23] MEDS: PREDNISONE 10 MG TABLET PO SCH (12:20)
--- NOTE | 2020-03-23 14:00 | NUR ---
DR LATHAM VISIT DR LATHAM HERE TO SEE PT, STATES TO RE-SWAB PT TOMORROW FOR COVID-19 FOR POSSIBLE SNF PLACEMENT IF NEGATIVE.
[2020-03-23] MEDS: CEFTRIAXONE SODIUM 1 GM IVP SCH (19:54)
[2020-03-23] MEDS: AZITHROMYCIN 250 MG TABLET PO SCH (19:55)
[2020-03-23] MEDS: MONTELUKAST SODIUM 10 MG TAB PO SCH (19:55)
[2020-03-23] MEDS: ATORVASTATIN CALCIUM 40 MG TABLET PO SCH (19:55)
[2020-03-24 04:01] VITALS: BP_SYST 68
[2020-03-24 06:01] LABS: BASOPHILS % (AUTO) 0.2 % (0.0-5.0); EOSINOPHILS % (AUTO) 0.1 % (0.0-8.0); HEMATOCRIT 36.9 % (42-54); MEAN CORPUSCULAR HEMOGLOBIN 29.3 pg (27.0-33.0); MEAN CORPUSCULAR HGB CONC 33.1 g/dL (32.0-36.0); MEAN CORPUSCULAR VOLUME 88.5 fL (79-99); MONOCYTES % (AUTO) 5.3 % (3.0-13.0); NEUTROPHILS % (AUTO) 81.3 % (40.0-77.0); PLATELET COUNT (AUTO) 346 K/uL (130-400); RED BLOOD CELL COUNT(AUTO) 4.17 MIL/uL (4.50-6.20); RED CELL DISTRIBUTION WIDTH 14.6 % (11.0-15.5); WHITE BLOOD COUNT (AUTO) 12.4 K/uL (4.8-10.8)
[2020-03-24 07:25] VITALS: BP 113/75
--- NOTE | 2020-03-24 07:38 | NUR ---
COLLECTED NASAL SPECIMEN SWAB FOR MORENO VIRUS NOVEL AND SENT TO LAB AT THIS TIME.
[2020-03-24] MEDS: PREDNISONE 10 MG TABLET PO SCH (09:13)
[2020-03-24] MEDS: FAMOTIDINE 20MG TAB 20 MG TAB PO SCH ×2 (09:13→20:45)
[2020-03-24] MEDS: LORATADINE 10 MG TABLET PO SCH (09:13)
[2020-03-24] MEDS: LISINOPRIL 10 MG TABLET PO SCH (09:13)
[2020-03-24] MEDS: RIVAROXABAN 20 MG TABLET PO SCH (09:13)
[2020-03-24] MEDS: CARVEDILOL 6.25 MG TABLET PO SCH ×2 (09:15→20:45)
[2020-03-24 12:11] VITALS: BP 108/63
--- NOTE | 2020-03-24 13:15 | NUR ---
BEDSIDE REPORT GIVEN TO JUNAID HILL AT THIS TIME
[2020-03-24 16:06] VITALS: BP 99/64
[2020-03-24 20:00] VITALS: BP 106/65
[2020-03-24] MEDS: MONTELUKAST SODIUM 10 MG TAB PO SCH (20:45)
[2020-03-24] MEDS: ATORVASTATIN CALCIUM 40 MG TABLET PO SCH (20:45)
[2020-03-24] MEDS: ACETAMINOPHEN 325 MG TAB PO PRN (20:46)
[2020-03-25] VITALS (7 sets, daily range): BP systolic 94–118; BP diastolic 60–73
--- NOTE | 2020-03-25 08:00 | NUR ---
ASSESSMENT ENCOUNTERED PT A&OX3, CALM COOPERATIVE AND DOES NOT APPEAR TO BE IN ANY DISTRESS. PT DENIES PAIN, SOB, NAUSEA BUT DOES C/O DYSPNEA ON EXERTION. PT IS AMBULATORY, GAIT STEADY AND STRONG WITH STAND BY ASSIST. CALL LIGHT WITHIN REACH
[2020-03-25] MEDS: RIVAROXABAN 20 MG TABLET PO SCH (09:10)
[2020-03-25] MEDS: LORATADINE 10 MG TABLET PO SCH (09:10)
[2020-03-25] MEDS: LISINOPRIL 10 MG TABLET PO SCH (09:11)
[2020-03-25] MEDS: FAMOTIDINE 20MG TAB 20 MG TAB PO SCH ×2 (09:11→20:26)
[2020-03-25] MEDS: PREDNISONE 10 MG TABLET PO SCH (09:11)
[2020-03-25] MEDS: CARVEDILOL 6.25 MG TABLET PO SCH ×2 (09:11→20:26)
[2020-03-25] MEDS: MONTELUKAST SODIUM 10 MG TAB PO SCH (20:26)
[2020-03-25] MEDS: ATORVASTATIN CALCIUM 40 MG TABLET PO SCH (20:26)
[2020-03-26 03:39] VITALS: BP 102/64
[2020-03-26 07:37] LABS: BASOPHILS % (AUTO) 0.3 % (0.0-5.0); EOSINOPHILS % (AUTO) 1.8 % (0.0-8.0); HEMATOCRIT 37.5 % (42-54); LYMPHOCYTES % (AUTO) 22.2 % (21.0-51.0); MEAN CORPUSCULAR HEMOGLOBIN 29.6 pg (27.0-33.0); MEAN CORPUSCULAR HGB CONC 33.6 g/dL (32.0-36.0); MEAN CORPUSCULAR VOLUME 88.2 fL (79-99); MONOCYTES % (AUTO) 9.3 % (3.0-13.0); NEUTROPHILS % (AUTO) 64.7 % (40.0-77.0); PLATELET COUNT (AUTO) 244 K/uL (130-400); RED BLOOD CELL COUNT(AUTO) 4.25 MIL/uL (4.50-6.20); RED CELL DISTRIBUTION WIDTH 15.2 % (11.0-15.5); WHITE BLOOD COUNT (AUTO) 11.1 K/uL (4.8-10.8)
[2020-03-26 07:44] LABS: CREATININE 1.1 mg/dL (0.5-1.5); POTASSIUM 4.8 mmol/L (3.5-5.1)
[2020-03-26 08:49] VITALS: BP 96/57
[2020-03-26] MEDS: CARVEDILOL 6.25 MG TABLET PO SCH ×2 (09:00→20:28)
[2020-03-26] MEDS: LISINOPRIL 10 MG TABLET PO SCH (09:00)
[2020-03-26] MEDS: FAMOTIDINE 20MG TAB 20 MG TAB PO SCH ×2 (09:38→20:28)
[2020-03-26] MEDS: RIVAROXABAN 20 MG TABLET PO SCH (09:38)
[2020-03-26] MEDS: LORATADINE 10 MG TABLET PO SCH (09:38)
[2020-03-26] MEDS: PREDNISONE 10 MG TABLET PO SCH (09:40)
[2020-03-26 13:26] VITALS: BP 92/64
--- NOTE | 2020-03-26 16:13 | NUR ---
BRODERICK FOLLOW UP Pt interviewed via phone secondary to isolation protocol. Pt reports tolerating Heart Healthy diet order with Great appetite, no GI distress. Recommend continue current diet order. RD to continue to monitor. Addendum: 03/26/20 at [address] RD Amended: Links added.
[2020-03-26 16:32] VITALS: BP 129/76
[2020-03-26 20:23] VITALS: BP 116/71
[2020-03-26] MEDS: MONTELUKAST SODIUM 10 MG TAB PO SCH (20:29)
[2020-03-26] MEDS: ATORVASTATIN CALCIUM 40 MG TABLET PO SCH (20:29)
[2020-03-26 23:37] VITALS: BP 96/72
[2020-03-27 04:54] VITALS: BP 108/69
[2020-03-27 08:33] VITALS: BP 110/74
[2020-03-27] MEDS: LISINOPRIL 10 MG TABLET PO SCH (09:54)
[2020-03-27] MEDS: PREDNISONE 10 MG TABLET PO SCH (09:54)
[2020-03-27] MEDS: LORATADINE 10 MG TABLET PO SCH (09:55)
[2020-03-27] MEDS: CARVEDILOL 6.25 MG TABLET PO SCH ×2 (09:55→19:38)
[2020-03-27] MEDS: FAMOTIDINE 20MG TAB 20 MG TAB PO SCH ×2 (09:55→20:11)
[2020-03-27] MEDS: RIVAROXABAN 20 MG TABLET PO SCH (09:55)
--- NOTE | 2020-03-27 12:59 | NUR ---
DC PLAN SPOKE TO BALJIT RICO SAID SHE SPOKE TO PATIENT AND HE IS NOW SAYING THAT HE FEELS SAFE TO GO HOME. LET HER KNOW THAT 02 HAD ALREADY BEEN DELIVERED TO HOUSE. MEALS ON WHEELS FROM BEFORE. HOME HEALTH SAID THEY WOULD COULD GO EVEN IF PENDING COVID. ONCE WE HAVE A CLEAR TO DC THEN CAN FINISH THE PROCESS FOR HOME HEALTH. SAID SHE WILL TALK TO DR. LATHAM TO SEE IF THEY WILL DC. Addendum: 03/27/20 at 1303 by CATE MILLARD RN CM Amended: Links added.
[2020-03-27] MEDS ORDERED: PRED10B PO (13:32)
[2020-03-27 13:49] VITALS: BP 102/65
[2020-03-27 16:30] VITALS: BP 107/71
--- NOTE | 2020-03-27 17:00 | NUR ---
DC PLAN PATIENT ACCEPTED TO HOME CARE DIMENSION PER ARCEL[facility]. LET NURSE KNOW. 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 PATIENT HAS KEYS TO HOME AND FEELS SAFE TO LET HIMSELF IN. EMS SET UP SINCE FAMILY CAN NOT LOAN PROCESSING SUPERVISOR AND PATIENT IS BLIND. Addendum: 03/27/20 at 1712 by CATE MILLARD RN CM Amended: Links added.
[2020-03-27] MEDS: ATORVASTATIN CALCIUM 40 MG TABLET PO SCH (20:11)
[2020-03-27] MEDS: MONTELUKAST SODIUM 10 MG TAB PO SCH (20:11)
[2020-03-27 20:18] VITALS: BP 117/51
[2020-03-27 23:57] VITALS: BP 100/62
[2020-03-28 05:04] VITALS: BP 104/66
[2020-03-28] MEDS ORDERED: PREDNISONE 10 MG TABLET PO SCH (09:00)
[2020-03-28] MEDS: RIVAROXABAN 20 MG TABLET PO SCH (09:07)
[2020-03-28] MEDS: FAMOTIDINE 20MG TAB 20 MG TAB PO SCH (09:07)
[2020-03-28] MEDS: LORATADINE 10 MG TABLET PO SCH (09:10)
[2020-03-28] MEDS: LISINOPRIL 10 MG TABLET PO SCH (09:10)
[2020-03-28 09:12] VITALS: BP 119/69
[2020-03-28] MEDS: CARVEDILOL 6.25 MG TABLET PO SCH (09:12)
--- NOTE | 2020-03-28 10:29 | NUR ---
AMBULANCE ADMINISTRATIVE APPROVAL NOTIFIED CFO LUCIO OF BARRIERS TO DISCHARGE. INFORMED UNABLE TO FIND FAMILY TO TRANSPORT PATIENT DUE TO SELF QUARANTINING. INFORMED PATIENT STILL TESTING POSITIVE AND CANNOT USE UBER OR LYFT. [facility]. [facility] QUOTE IS $250.00. CD
--- NOTE | 2020-03-28 10:42 | NUR ---
DC PLAN SPOKE TO BAILEY AT [facility]. WENT OVER THE PATIENT INFORMATION INCLUDING THAT PATIENT IS LEGALLY BLIND. LIVES ALONE. DOES HAVE HOUSE KEYS. COVID 19 POSITIVE. FAMILY NOT WANTING TO REHAB/PRE VOCATIONAL COUNSELOR SINCE THEY ARE POSITIVE WELL. SPOKE TO OWODROW ALANIZ DIRECTOR PRIOR TO CONVERSATION LETTING HER KNOW OF SITUATION AND IF HOSPITAL WOULD APPROVE COVERING COST IF INSURANCE DID NOT. GOT APPROVAL LET BAILEY AT [facility] KNOW SHE IS THE PRECISION MACHINIST. IF THEY DO REHAB/PRE VOCATIONAL COUNSELOR PATIENT AND IS NOT COVERED BY INSURANCE THEN [facility] WILL COVER COST. VERBALIZED UNDERSTANDING. LET NURSE KNOW SAID SHE HAD BEEN TOLD BY [facility] THAT PATIENT COULD GET THE BILL AND IT WOULD BE AROUND 800 DOLLARS. HE SAID NO WILL CALL SISTER TO COME PICK HIM UP. LET HER KNOW THAT IF SISTER STILL REFUSES. OKAY TO SEND VIA EMS. THEY WILL SUBMIT TO INSURANCE IF INSURANCE DOES NOT COVER. APPROVED FOR [facility] TO COVER. Addendum: 03/28/20 at 1053 by CATE MILLARD RN CM Amended: Links added.
--- NOTE | 2020-03-28 13:30 | NUR ---
DISCHARGE INSTRUCTIONS/INFORMATION GIVEN TO PATIENT. TEACH BACK METHOD UTILIZED TO EDUCATE PATIENT ON DIET, S/S TO MONITOR, WHEN TO CALL MD, NEW MED PRESCRIBED, AND F/U APPOINTMENTS. INSTRUCTED PATIENT TO CONTINUE TO SELF QUARANTINE FOR ANOTHER 14 DAYS. ENCOURAGED TO FOLLOW CDC GUIDELINES ON PREVENTING SPREAD OF COVID-19. ENCOURAGED METICULOUS HAND WASHING. PATIENT VERBALIZED UNDERSTANDING. PIV REMOVED. TIP WAS INTACT. TELE REMOVED AND RETURNED. PATIENT WAS PICKED UP BY EMS. ALL BELONGINGS WERE PACKED.
--- NOTE | 2020-03-28 13:56 | NUR ---
DC PLAN GAVE UPDATE TO DR. FRIED NURSE SHE IS SETTING UP A TELE CONFERENCE WITH PATIENT TOMORROW WITH PCP. AWARE OF PENDING HOME HEALTH AND THAT THEY ARE WAITING FOR DR. FRIED TO SAY OKAY FOR HOME HEALTH. Addendum: 03/28/20 at 1358 by CATE MILLARD RN CM Amended: Links added.
== END 2020-03-28 11:00 | disposition home health service (06) | DRG 177 ==
LOC: EDH 16:17 → EDHIP 19:30 → 2DH 22:14 → 2CH 03-15 17:27 → 2DH 03-17 14:10
PROVIDERS: ADMIT Internal Medicine; ATTEND Internal Medicine
DX: U07.1 COVID-19 (principal); J12.89 Other viral pneumonia; E43 Unspecified severe protein-calorie malnutrition; J96.01 Acute respiratory failure with hypoxia; M62.82 Rhabdomyolysis; J44.0 Chronic obstructive pulmonary disease with (acute) lower respiratory infection; E78.5 Hyperlipidemia, unspecified; H54.8 Legal blindness, as defined in USA; E66.9 Obesity, unspecified; I10 Essential (primary) hypertension; M19.90 Unspecified osteoarthritis, unspecified site; Z60.2 Problems related to living alone; R53.81 Other malaise; Z68.30 Body mass index [BMI] 30.0-30.9, adult; Z79.01 Long term (current) use of anticoagulants; Z79.899 Other long term (current) drug therapy; Z90.49 Acquired absence of other specified parts of digestive tract; Z86.73 Personal history of transient ischemic attack (TIA), and cerebral infarction without residual deficits
CPT/HCPCS: 36415; 36600; 71045; 71250; 80048; 80053; 81001; 82550; 82728; 82803; 82948; 83605; 83615; 83735; 83874; 83880; 84100; 84145; 84484; 85025; 85378; 85610; 85730; 86140; 87040; 87088; 87177; 87633; 87635; 87804; 93005; 94760; 97039; 99291; G0378; J0456; J0696; J2920; J7030; J7512